=== PATIENT | female | born 1965 | race Caucasian/White ===

== ENCOUNTER 2017-04-11 10:04 | Day surgery (SDC) | payer BC ==
[2017-04-11] MEDS ORDERED: PROPOFOL INJ 200 MG/20 ML VIAL IV ONE (11:07)
[2017-04-11] MEDS ORDERED: DIPHENHYDRAMINE HCL 50 MG/ML VIAL IV PRN (11:54)
[2017-04-11] MEDS ORDERED: FENTANYL CITRATE INJ/PF 100 MCG/2 ML AMPUL IV PRN ×3 (11:54)
[2017-04-11] MEDS ORDERED: PROMETHAZINE HCL INJ 25 MG/1 ML VIAL IV PRN ×2 (11:54)
[2017-04-11] MEDS ORDERED: MEPERIDINE HCL/PF INJ 25 MG/1 ML DISP.SYRIN IV PRN (11:54)
--- NOTE | 2017-04-11 11:56 | Operative Report ---
Operative Report DATE OF SURGERY: 04/11/17 Operative Report: The risks, benefits and alternatives of the procedure including risks of bleeding, perforation requiring surgery are explained to the patient in detail and informed consent is obtained. Patient is taken to the operating room and placed in the left, lateral decubital position. Timeout was called. Propofol medication is administered. A rectal examination was done which did not reveal any masses, tears or fissures. An Olympus videoscope was inserted into the patient's rectum. The scope was then carefully advanced all the way to the cecum. The cecum was identified by the usual anatomical landmarks including the ileocecal valve as well as the appendiceal office. Photodocumentation is obtained. The scope was then sequentially pulled back via the rest segments of the colon including the ascending colon, hepatic flexure, transverse colon, splenic flexure, descending colon finding to the rectosigmoid portions of the colon. Retroflexion maneuvers performed. PREOPERATIVE DIAGNOSIS: Colorectal cancer screening POSTOPERATIVE DIAGNOSIS: Sessile polyp noted on the fold in the descending colon , attempted snare polypectomy but essentially ablated in situ no tissue is recovered. OPERATION: Colonoscopy with snare polypectomy SURGEON: JAGDISH BATRES ANESTHESIA: LMAC TISSUE REMOVED OR ALTERED: None recovered COMPLICATIONS: None. ESTIMATED BLOOD LOSS: None. INTRAOPERATIVE FINDINGS: As described above. PROCEDURE: Patient tolerated the procedure well. No immediate postprocedure comp occasions are noted. She will be watched carefully in recovery for any post suggestions sedation complications. Date of discharge 04/11/2017. Patient discharged in good condition. Discharge activity: Regular. Discharge diet: Regular. 2-3 week follow-up to discuss findings. 5 year surveillance colonoscopy. Patient is instructed call the office or proceed to the emergency room should there be any further problems or questions.
[2017-04-11 15:36] VITALS: BP 151/94
== END 2017-04-11 13:45 | disposition home or self-care (01) ==
LOC: OROUT 10:04
PROVIDERS: ATTEND Internal Medicine Gastroenterology
PROC: 0D5M8ZZ Destruction of Descending Colon, Via Natural or Artificial Opening Endoscopic (ICD-10-PCS; principal; 2017-04-11 11:30)
DX: Z12.11 Encounter for screening for malignant neoplasm of colon (principal); D12.4 Benign neoplasm of descending colon; R63.5 Abnormal weight gain; I10 Essential (primary) hypertension; K21.9 Gastro-esophageal reflux disease without esophagitis; Z86.73 Personal history of transient ischemic attack (TIA), and cerebral infarction without residual deficits; Z79.899 Other long term (current) drug therapy; Z88.8 Allergy status to other drugs, medicaments and biological substances; Z88.0 Allergy status to penicillin; Z88.5 Allergy status to narcotic agent; Z68.41 Body mass index [BMI] 40.0-44.9, adult
CPT/HCPCS: 45385; J2704; 811

== ENCOUNTER → 2017-10-03 | Outpatient (CLI) | payer BC ==
--- NOTE | 2017-10-03 15:47 | WOMENS IMAGING REPORT ---
EXAM DESCRIPTION: LEFT DIAGNOSTIC MAMMO W/CAD; U/S BREAST UNILAT LIMITED COMPLETED DATE/TIME: 10/03/2017 9:22 am; 10/03/2017 10:39 am REASON FOR STUDY: ASYMMETRIC BREAST TISSUE; N63.24 N63.24 UNSPECIFIED LUMP IN THE LEFT BREAST, LOWE R INNER QUAD COMPARISON: Multiple since 2011 TECHNIQUE: Compression magnification craniocaudal and mediolateral oblique images of the breast zulema rded with digital acquisition. Repeat whole breast left CC, MLO, and 90 mediolateral view. Bilateral breast ultrasound was also pe rformed. LIMITATIONS: None. FINDINGS: BREAST: Left MASSES: No suspicious masses. CALCIFICATIONS: No new or suspicious calcifications. ARCHITECTURAL DISTORTION: None. DEVELOPING DENSITY: None. ASYMMETRY: Asymmetric fibroglandular tissue is present in the lower inner quadrant left breast withou t worrisome mammographic features. OTHER: No other significant findings. Read with the assistance of CAD. .[facility] - R2 Cenova Version 1.3 .[facility] - R2 Cenova Version 1.3 .[facility] - R2 Cenova Version 2.4 .[facility] [place] - R2 Cenova Version 2.4 .[facility] - R2 Pot Liner Version 9.2 Bilateral breast ultrasound: Ultrasound of the left lower inner quadrant breast was performed. Incidental finding of a 9 x 4 mm b reast cyst. No worrisome solid nodules. No acoustic absorption. Comparison imaging of the lower inner quadrant right breast was performed. No focal findings. No cy sts. No masses. No worrisome acoustic absorption. IMPRESSION: No mammographic or sonographic evidence for malignancy left breast. Normal ultrasound r ight breast lower inner quadrant. BREAST DENSITY: b. There are scattered areas of fibroglandular density. BIRAD: 2 Benign findings. RECOMMENDATION: RECOMMENDED FOLLOW UP: Please continue yearly bilateral screening mammography/ tomos ynthesis in September 2018. SPECIFIC INTERVENTION/IMAGING/CONSULTATION RECOMMENDED:No additional intervention/ imaging/consultati on needed at this time. COMMUNICATION:Patient notified by letter COMMENT: The patient has been notified of the results by letter per MQSA requirements. Additional no tification policies are in place for contacting patient with suspicious or incomplete findings. Quality ID #[id number]: The [employer] recommends an annual screening mammogram for women aged 40 years or over. This facility utilizes a reminder system to ensure that all patients receive reminder letters, and/or direct phone calls for appointments. This includes reminders for routine scr eening mammograms, diagnostic mammograms, or other Breast Imaging Interventions when appropriate. Th is patient will be placed in the appropriate reminder system. The [employer] (ACR) has developed recommendations for screening MRI of the breast s in certain patient populations, to be used in conjunction with mammography. Breast MRI surveillanc e may be appropriate for women with more than 20% lifetime risk of developing breast cancer as deter mined by genetic testing, significant family history of the disease, or history of mantle radiation f or Hodgkins Disease. ACR Practice Guidelines 2008. TECHNICAL DOCUMENTATION: FINDING NUMBER: (1) ASSESSMENT: (1) JOB ID: [id number] [employer]- All Rights Reserved Reading location - IP/workstation name: [facility]
--- NOTE | 2017-10-03 15:47 | WOMENS IMAGING REPORT ---
EXAM DESCRIPTION: LEFT DIAGNOSTIC MAMMO W/CAD; U/S BREAST UNILAT LIMITED COMPLETED DATE/TIME: 10/03/2017 9:22 am; 10/03/2017 10:39 am REASON FOR STUDY: ASYMMETRIC BREAST TISSUE; N63.24 N63.24 UNSPECIFIED LUMP IN THE LEFT BREAST, LOWE R INNER QUAD COMPARISON: Multiple since 2011 TECHNIQUE: Compression magnification craniocaudal and mediolateral oblique images of the breast zulema rded with digital acquisition. Repeat whole breast left CC, MLO, and 90 mediolateral view. Bilateral breast ultrasound was also pe rformed. LIMITATIONS: None. FINDINGS: BREAST: Left MASSES: No suspicious masses. CALCIFICATIONS: No new or suspicious calcifications. ARCHITECTURAL DISTORTION: None. DEVELOPING DENSITY: None. ASYMMETRY: Asymmetric fibroglandular tissue is present in the lower inner quadrant left breast withou t worrisome mammographic features. OTHER: No other significant findings. Read with the assistance of CAD. .[facility] - R2 Cenova Version 1.3 .[facility] - R2 Cenova Version 1.3 .[facility] - R2 Cenova Version 2.4 .[facility] [place] - R2 Cenova Version 2.4 .[facility] - R2 [employer] Mechanic Version 9.2 Bilateral breast ultrasound: Ultrasound of the left lower inner quadrant breast was performed. Incidental finding of a 9 x 4 mm b reast cyst. No worrisome solid nodules. No acoustic absorption. Comparison imaging of the lower inner quadrant right breast was performed. No focal findings. No cy sts. No masses. No worrisome acoustic absorption. IMPRESSION: No mammographic or sonographic evidence for malignancy left breast. Normal ultrasound r ight breast lower inner quadrant. BREAST DENSITY: b. There are scattered areas of fibroglandular density. BIRAD: 2 Benign findings. RECOMMENDATION: RECOMMENDED FOLLOW UP: Please continue yearly bilateral screening mammography/ tomos ynthesis in September 2018. SPECIFIC INTERVENTION/IMAGING/CONSULTATION RECOMMENDED:No additional intervention/ imaging/consultati on needed at this time. COMMUNICATION:Patient notified by letter COMMENT: The patient has been notified of the results by letter per MQSA requirements. Additional no tification policies are in place for contacting patient with suspicious or incomplete findings. Quality ID #[id number]: The [employer] recommends an annual screening mammogram for women aged 40 years or over. This facility utilizes a reminder system to ensure that all patients receive reminder letters, and/or direct phone calls for appointments. This includes reminders for routine scr eening mammograms, diagnostic mammograms, or other Breast Imaging Interventions when appropriate. Th is patient will be placed in the appropriate reminder system. The [employer] (ACR) has developed recommendations for screening MRI of the breast s in certain patient populations, to be used in conjunction with mammography. Breast MRI surveillanc e may be appropriate for women with more than 20% lifetime risk of developing breast cancer as deter mined by genetic testing, significant family history of the disease, or history of mantle radiation f or Hodgkins Disease. ACR Practice Guidelines 2008. TECHNICAL DOCUMENTATION: FINDING NUMBER: (1) ASSESSMENT: (1) JOB ID: [id number] [employer]- All Rights Reserved Reading location - IP/workstation name: [facility]-RR
--- NOTE | 2017-10-03 15:47 | WOMENS IMAGING REPORT ---
EXAM DESCRIPTION: LEFT DIAGNOSTIC MAMMO W/CAD; U/S BREAST UNILAT LIMITED COMPLETED DATE/TIME: 10/03/2017 9:22 am; 10/03/2017 10:39 am REASON FOR STUDY: ASYMMETRIC BREAST TISSUE; N63.24 N63.24 UNSPECIFIED LUMP IN THE LEFT BREAST, LOWE R INNER QUAD COMPARISON: Multiple since 2011 TECHNIQUE: Compression magnification craniocaudal and mediolateral oblique images of the breast zulema rded with digital acquisition. Repeat whole breast left CC, MLO, and 90 mediolateral view. Bilateral breast ultrasound was also pe rformed. LIMITATIONS: None. FINDINGS: BREAST: Left MASSES: No suspicious masses. CALCIFICATIONS: No new or suspicious calcifications. ARCHITECTURAL DISTORTION: None. DEVELOPING DENSITY: None. ASYMMETRY: Asymmetric fibroglandular tissue is present in the lower inner quadrant left breast withou t worrisome mammographic features. OTHER: No other significant findings. Read with the assistance of CAD. .[facility] - R2 Cenova Version 1.3 .[facility] - R2 Cenova Version 1.3 .[facility] - R2 Cenova Version 2.4 .[facility] [place] - R2 Cenova Version 2.4 .[facility] - R2 Historical Guide Version 9.2 Bilateral breast ultrasound: Ultrasound of the left lower inner quadrant breast was performed. Incidental finding of a 9 x 4 mm b reast cyst. No worrisome solid nodules. No acoustic absorption. Comparison imaging of the lower inner quadrant right breast was performed. No focal findings. No cy sts. No masses. No worrisome acoustic absorption. IMPRESSION: No mammographic or sonographic evidence for malignancy left breast. Normal ultrasound r ight breast lower inner quadrant. BREAST DENSITY: b. There are scattered areas of fibroglandular density. BIRAD: 2 Benign findings. RECOMMENDATION: RECOMMENDED FOLLOW UP: Please continue yearly bilateral screening mammography/ tomos ynthesis in September 2018. SPECIFIC INTERVENTION/IMAGING/CONSULTATION RECOMMENDED:No additional intervention/ imaging/consultati on needed at this time. COMMUNICATION:Patient notified by letter COMMENT: The patient has been notified of the results by letter per MQSA requirements. Additional no tification policies are in place for contacting patient with suspicious or incomplete findings. Quality ID #225: The [employer] recommends an annual screening mammogram for women aged 40 years or over. This facility utilizes a reminder system to ensure that all patients receive reminder letters, and/or direct phone calls for appointments. This includes reminders for routine scr eening mammograms, diagnostic mammograms, or other Breast Imaging Interventions when appropriate. Th is patient will be placed in the appropriate reminder system. The [employer] (ACR) has developed recommendations for screening MRI of the breast s in certain patient populations, to be used in conjunction with mammography. Breast MRI surveillanc e may be appropriate for women with more than 20% lifetime risk of developing breast cancer as deter mined by genetic testing, significant family history of the disease, or history of mantle radiation f or Hodgkins Disease. ACR Practice Guidelines 2008. TECHNICAL DOCUMENTATION: FINDING NUMBER: (1) ASSESSMENT: (1) JOB ID: [id number] [employer]- All Rights Reserved Reading location - IP/workstation name: [facility]-RR
== END ==
LOC: WI 09:01
PROVIDERS: ATTEND Physician Assistant Medical
DX: N60.02 Solitary cyst of left breast (principal)
CPT/HCPCS: 76642

== ENCOUNTER 2020-02-25 14:26 | Emergency (ER) | payer BC ==
--- NOTE | 2020-02-25 15:31 | ER Document Report ---
ED Medical Screen (RME) - General Chief Complaint: Shortness Of Breath Stated Complaint: COUGH, DIFFICULTY BREATHING Time Seen by Provider: 02/25/20 15:20 Primary Care Provider: FARHEEN GUERRA PA-C [Primary Care Provider] - Follow up as needed Mode of Arrival: Ambulatory Information source: Patient TRAVEL OUTSIDE OF THE [place] IN LAST 30 DAYS: No - HPI Notes: Patient is a 54-year-old female with no medical history who presents with shortness of breath the past 3 days. Patient is Covid positive, and tested +3 days ago. She reports dry cough, fever, nausea, vomiting, and diarrhea. Patient states her and son have both tested positive as well. - Related Data Allergies/Adverse Reactions: hydromorphone HCl [From Dilaudid] Allergy (Severe, Verified 04/23/13 16:19) Seizures lisinopril [Lisinopril] Allergy (Severe, Verified 04/23/13 16:19) Whole body flushes red Penicillins Allergy (Severe, Verified 04/23/13 16:19) Hives tramadol HCl [From Ultram] Allergy (Severe, Verified 04/23/13 16:19) Anaphylaxis hydrochlorothiazide [Hydrochlorothiazide] Adverse Reaction (Intermediate, Verified 07/26/15 07:47) ORTHOSTATIC HYPOTENSION oxycodone HCl [From Percocet] Adverse Reaction (Intermediate, Verified 04/23/13 16:19) hives, itchy Fish Eggs Allergy (Severe, Uncoded 04/23/13 16:19) SOB, Hives, Past Medical History - General Information source: Patient - Social History Frequency of alcohol use: Occasional - Past Medical History Cardiac Medical History: Reports: Hx Hypercholesterolemia - MOTHER, Hx Hypertension Denies: Hx Coronary Artery Disease, Hx Heart Attack Pulmonary Medical History: Reports: Hx Pneumonia Denies: Hx Asthma, Hx Bronchitis - Recently-10/24/11, Hx COPD Neurological Medical History: Reports: Hx Migraine. Denies: Hx Cerebrovascular Accident, Hx Seizures Endocrine Medical History: Reports: Hx Hypothyroidism GI Medical History: Reports: Hx Gastroesophageal Reflux Disease. Denies: Hx Hepatitis, Hx Hiatal Hernia, Hx Ulcer Musculoskeltal Medical History: Reports Hx Arthritis Psychiatric Medical History: Reports: Hx Anxiety Infectious Medical History: Denies: Hx Hepatitis Past Surgical History: Reports: Hx Gynecologic Surgery, Hx Hysterectomy. Denies: Hx Mastectomy, Hx Open Heart Surgery, Hx Pacemaker - Immunizations Hx Diphtheria, Pertussis, Tetanus Vaccination: Yes - 2010 Physical Exam - Vital signs Vitals: Temp Pulse Resp BP Pulse Ox 99.1 F 94 20 143/82 H 97 02/25/20 14:49 02/25/20 14:49 02/25/20 14:49 02/25/20 14:49 02/25/20 14:49 - Respiratory Breath sounds: Nonproductive cough - Cardiovascular Rhythm: Regular Heart sounds: Normal auscultation Course - Re-evaluation Re-evalutation: I have greeted and performed a rapid initial assessment of this patient. A comprehensive ED assessment and evaluation of the patient, analysis of test results and completion of medical decision making process will be conducted by an additional ED providers. - Vital Signs Vital signs: Temp Pulse Resp BP Pulse Ox 99.1 F 94 20 143/82 H 97 02/25/20 14:49 02/25/20 14:49 02/25/20 14:49 02/25/20 14:49 02/25/20 14:49 Doctor's Discharge - Discharge Referrals: FARHEEN GUERRA PA-C [Primary Care Provider] - Follow up as needed
--- NOTE | 2020-02-25 15:49 | RADIOLOGY REPORT (SQ) ---
EXAM DESCRIPTION: CHEST SINGLE VIEW IMAGES COMPLETED DATE/TIME: 02/25/2020 3:40 pm REASON FOR STUDY: shortness of breath COMPARISON: 12/18/2011 EXAM PARAMETERS: NUMBER OF VIEWS: One view. TECHNIQUE: Single frontal radiographic view of the chest acquired. RADIATION DOSE: NA LIMITATIONS: None. FINDINGS: LUNGS AND PLEURA: No opacities, masses or pneumothorax. No pleural effusion. MEDIASTINUM AND HILAR STRUCTURES: No masses. Contour normal. HEART AND VASCULAR STRUCTURES: Heart normal in size. Normal vasculature. BONES: No acute findings. HARDWARE: None in the chest. OTHER: No other significant finding. IMPRESSION: NO ACUTE RADIOGRAPHIC FINDING IN THE CHEST. TECHNICAL DOCUMENTATION: JOB ID: [id number] [employer]- All Rights Reserved Reading location - IP/workstation name: [email or web address]
[2020-02-25 15:59] LABS: ABSOLUTE BASOPHILS # (AUTO) 0.1 10^3/uL (0.0-0.2); ABSOLUTE LYMPHOCYTES (AUTO) 1.8 10^3/uL (0.5-4.7); ABSOLUTE MONOCYTES (AUTO) 0.4 10^3/uL (0.1-1.4); ABSOLUTE NEUT (AUTO) 3.9 10^3/uL (1.7-8.2); BASOPHILS % (AUTO) 1.4 % (0-2); EOSINOPHILS % (AUTO) 0.2 % (0-6); HEMATOCRIT 41.6 % (36.0-47.0); HEMOGLOBIN 14.6 g/dL (12.0-15.5); LYMPHOCYTES % (AUTO) 28.7 % (13-45); MEAN CORPUSCULAR HEMOGLOBIN 29.9 pg (27.0-33.4); MEAN CORPUSCULAR VOLUME 86 fl (80-97); PLATELET COUNT 203 10^3/uL (150-450); RED BLOOD COUNT 4.87 10^6/uL (3.72-5.28); RED CELL DISTRIBUTION WIDTH 12.7 % (11.5-14.0); SEGMENTED NEUTROPHILS % (AUTO) 63.7 % (42-78); TOTAL CELLS COUNTED % (AUTO) 100 %; WHITE BLOOD COUNT 6.2 10^3/uL (4.0-10.5)
[2020-02-25 16:15] LABS: ALBUMIN 4.3 g/dL (3.5-5.0); ALKALINE PHOSPHATASE 97 U/L (38-126); ANION GAP 13 (5-19); ASPARTATE AMINO TRANSFERASE 94 U/L (14-36); BILIRUBIN,DIRECT 0.1 mg/dL (0.0-0.4); BILIRUBIN,TOTAL 0.5 mg/dL (0.2-1.3); BLOOD UREA NITROGEN 13 mg/dL (7-20); CALCIUM 9.1 mg/dL (8.4-10.2); CARBON DIOXIDE 23 mmol/L (22-30); CHLORIDE 102 mmol/L (98-107); GLUCOSE 99 mg/dL (75-110); POTASSIUM 4.1 mmol/L (3.6-5.0); TOTAL PROTEIN 7.1 g/dL (6.3-8.2)
[2020-02-25] MEDS ORDERED: DEXAMETHASONE SOD PHOSPHATE INJ 4 MG/1 ML VIAL IV ONE (16:56)
[2020-02-25] MEDS ORDERED: ACETAMINOPHEN 325 MG TABLET PO ONE (16:57)
--- NOTE | 2020-02-25 17:00 | ER Document Report ---
Entered by ARIADNE DILL SCRIBE 02/25/20 1600 Acting as scribe for:KATHLEEN VEGA DO ED General - General Chief Complaint: Shortness Of Breath Stated Complaint: COUGH, DIFFICULTY BREATHING Time Seen by Provider: 02/25/20 15:20 Primary Care Provider: FARHEEN GUERRA PA-C [Primary Care Provider] - Follow up as needed Mode of Arrival: Ambulatory Information source: Patient Notes: This 54-year-old female patient presents to the emergency department today with complaints of a five day history of nasal congestion, cough, and fevers. Melody rajput mentions that her, her son, and her have all tested positive for Covid. Patient states she tested positive three days ago at a [facility]. TRAVEL OUTSIDE OF THE [place] IN LAST 30 DAYS: No - Related Data Allergies/Adverse Reactions: hydromorphone HCl [From Dilaudid] Allergy (Severe, Verified 04/23/13 16:19) Seizures lisinopril [Lisinopril] Allergy (Severe, Verified 04/23/13 16:19) Whole body flushes red Penicillins Allergy (Severe, Verified 04/23/13 16:19) Hives tramadol HCl [From Ultram] Allergy (Severe, Verified 04/23/13 16:19) Anaphylaxis hydrochlorothiazide [Hydrochlorothiazide] Adverse Reaction (Intermediate, Veri fied 07/26/15 07:47) ORTHOSTATIC HYPOTENSION oxycodone HCl [From Percocet] Adverse Reaction (Intermediate, Verified 04/23/13 16:19) hives, itchy Fish Eggs Allergy (Severe, Uncoded 04/23/13 16:19) SOB, Hives, Past Medical History - General Information source: Patient - Social History Smoking Status: Never Smoker Cigarette use (# per day): No Frequency of alcohol use: Occasional Drug Abuse: None Lives with: Family Family History: Reviewed & Not Pertinent - Past Medical History Cardiac Medical History: Reports: Hx Hypercholesterolemia - MOTHER, Hx Hypertension Pulmonary Medical History: Reports: Hx Pneumonia Neurological Medical History: Reports: Hx Migraine Endocrine Medical History: Reports: Hx Hypothyroidism GI Medical History: Reports: Hx Gastroesophageal Reflux Disease Musculoskeletal Medical History: Reports Hx Arthritis Psychiatric Medical History: Reports: Hx Anxiety Past Surgical History: Reports: Hx Gynecologic Surgery, Hx Hysterectomy - Immunizations Hx Diphtheria, Pertussis, Tetanus Vaccination: Yes - 2010 Review of Systems - Review of Systems Constitutional: See HPI, Fever EENT: See HPI, Nose congestion Cardiovascular: No symptoms reported Respiratory: See HPI, Short of breath Gastrointestinal: No symptoms reported Genitourinary: No symptoms reported Female Genitourinary: No symptoms reported Musculoskeletal: No symptoms reported Skin: No symptoms reported Hematologic/Lymphatic: No symptoms reported Neurological/Psychological: No symptoms reported -: Yes All other systems reviewed and negative Physical Exam - Vital signs Vitals: Temp Pulse Resp BP Pulse Ox 99.1 F 94 20 143/82 H 97 02/25/20 14:49 02/25/20 14:49 02/25/20 14:49 02/25/20 14:49 02/25/20 14:49 - Notes Notes: Physical Exam: General: Alert, appears well. HEENT: Normocephalic. Atraumatic. PERRL. Extraocular movements intact. Orophary nx clear. Neck: Supple. Non-tender. Respiratory: No respiratory distress. Diminished in the bases bilaterally. Dry nonproductive cough. Cardiovascular: Regular rate and rhythm. Abdominal: Obese. Non-tender. No distension. Normal Bowel Sounds. Back: No gross abnormalities. Extremities: Moves all four extremities. Upper extremities: Normal inspection. Normal ROM. Lower extremities: Normal inspection. No edema. Normal ROM. Neurological: Normal cognition. AAOx4. Normal speech. Psychological: Normal affect. Normal Mood. Skin: Warm. Dry. Normal color. 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 Feels poorly with cough and chest discomfort with the cough and some sob. with minor symptoms of the same. No comorbidities except overweight. Workup here is reassuring and discussed return precautions. She expressed understanding. - Vital Signs Vital signs: Temp Pulse Resp BP Pulse Ox 99.1 F 94 20 143/82 H 96 02/25/20 14:49 02/25/20 14:49 02/25/20 14:49 02/25/20 14:49 02/25/20 15:26 - Laboratory Result Diagrams: 02/25/20 15:51 02/25/20 15:51 Laboratory results interpreted by me: 02/25/20 02/25/20 02/25/20 15:51 15:51 15:51 D-Dimer 0.58 H AST 94 H ALT 104 H C-Reactive Protein 27.0 H - Diagnostic Test Radiology reviewed: Image reviewed, Reports reviewed - EKG Interpretation by Me EKG shows normal: Sinus rhythm Rate: Normal Rhythm: NSR - NSR NL [place] [address] elevation or depression my interpretation . Discharge - Discharge Clinical Impression: COVID-19 Condition: Stable Disposition: HOME, SELF-CARE Instructions: COVID-19 Guidance for Persons Under Investigation Additional Instructions: Rest, fluids, please return here for chest pain, shortness of breath, other problems or concerns. Finish antibiotic. Tylenol or ibuprofen for fever. Prescriptions: Albuterol Sulfate [Albuterol Sulfate Hfa] 2 puff IH TID #1 hfa.aer.ad Fluconazole [Diflucan] 150 mg PO ONCE PRN 1 Days #1 tablet PRN Reason: Methylprednisolone [Medrol Dosepack (4 mg/Tab) 21 Tab/Dosepak] 4 mg PO ASDIR PRN #1 tab.ds.pk PRN Reason: Azithromycin [Zithromax 250 mg Tablet] 250 mg PO ASDIR PRN #6 tablet PRN Reason: Referrals: FARHEEN GUERRA PA-C [Primary Care Provider] - Follow up as needed I personally performed the services described in the documentation, reviewed and edited the documentation which was dictated to the scribe in my presence, and it accurately records my words and actions.
[2020-02-25] MEDS ORDERED: NORMAL SALINE 1000 ML 1,000 ML IV ONE (17:20)
[2020-02-25 17:48] LABS: A TYPE INFLUENZA AG NEGATIVE (NEGATIVE); B INFLUENZA AG NEGATIVE (NEGATIVE)
[2020-02-25 19:08] VITALS: BP 106/71
--- NOTE | 2020-02-25 19:40 | EKG REPORT ---
SEVERITY:- ABNORMAL ECG - SINUS RHYTHM PROBABLE LEFT ATRIAL ABNORMALITY BORDERLINE LEFT AXIS DEVIATION BORDERLINE R WAVE PROGRESSION, ANTERIOR LEADS BORDERLINE T ABNORMALITIES, DIFFUSE LEADS : Confirmed by: Jayde Whalen MD 25-Feb-2020 19:39:13
== END 2020-02-25 19:09 | disposition home or self-care (01) ==
LOC: ER 14:26
DX: U07.1 COVID-19 (principal); R06.02 Shortness of breath; R05 Cough; R09.81 Nasal congestion; R50.9 Fever, unspecified; I10 Essential (primary) hypertension; Z88.6 Allergy status to analgesic agent; Z90.710 Acquired absence of both cervix and uterus
CPT/HCPCS: 93005; 99285; 96361; 96374; 36415; 87040; 83735; 85025; 86140; 80053; 84484; 85379; 87804; 71045; 93010; J1100; J7030